=== PATIENT | female | born 1970 | race Caucasian/White ===

== ENCOUNTER 2018-09-19 08:22 | Inpatient (IN) ==
--- NOTE | 2018-09-01 11:56 | Anesthesiology Consultation ---
Date of Service September 01, 2018 Assessment & Plan (1) Encounter for pre-operative examination: Chart Review Chart Review: Acceptable Risk for Surgery and Patient seen in Pre Admission Testing Consults Requested none Teaching & Discussion Pre-Anesthesia Teaching/Discussion Notes: Instructed NPO after midnight before surgery, except medications with 15 cc of water. Medication instructions provided according to the PAT guidelines. History Surgery Operation Date: 09/19/18 10:05 Proposed Procedures p T12-L1 Decompression and Fusion - Juan Spears DO Height/Weight Height: 5 ft 6 in Weight: 82.5 kg Allergies Allergy/AdvReac Type Severity Reaction Status Date / Time No Known Allergies Allergy Verified 08/26/18 11:21 Medications Home Medications Medication Instructions Recorded Confirmed Last Taken [id number]-zbvovznardhjh-ournjoio 2 tab PO Q6H PRN 08/26/18 08/26/18 Unknown [Excedrin Extra Strength] hydrochlorothiazide 25 mg PO QPM 08/26/18 08/26/18 Unknown paroxetine HCl 20 mg PO QPM 08/26/18 08/26/18 Unknown trazodone 50 mg PO HS 08/26/18 08/26/18 Unknown Past Medical History Medical History Anxiety Chronic pain D/T BACK ISSUES Depression Hypertension Seasonal allergies Past Family History Family History Brother Family history of diabetes mellitus Son No problems noted. Father Family history of diabetes mellitus Mother Family history of diabetes mellitus Grandmother (Maternal) Family history of diabetes mellitus Sister Family history of diabetes mellitus Past Surgical History Surgical History History of section History of cholecystectomy History of hysterectomy OVARIES REMAIN; AT SAME TIME HAD BLADDER TACKING Past Anesthesia History No Hx of Anesthesia Complications and No Family Hx of Anesthesia Complications History of PONV Yes (Drank water immediately after surgery when they told her not to.) Motion Sickness Screening History of Motion Sickness: No Social History Smoking Status: Former smoker tobacco type: cigarettes Do You Dip or Chew Tobacco: No Smoking End Date: 1999 Hx Alcohol Use: Yes alcohol intake frequency: holidays/special occasions only Hx Substance Use: Yes (USES 1-2 TIME PER MONTH) substance use type: marijuana Substance Use Type Other:: SMOKES Last Used Substance Other:: 1 WEEK AGO Exercise / Class Metabolic Activity II 4-5 Yardwork/Stairs/Walk up hill (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 Able to climb FOS with railing for stability. Denies CP or SOB. ) Review of Systems Patient denies chest pain, shortness of breath, dyspnea on exertion, cough, wheezing, palpitations. +Joint Pain (Back, hands, knees) +Acid reflux (controlled with diet) Physical Exam Vital Signs BP: 109/74 P: 64 R: 16 T: 97.5 SPO2: 97% on RA ENMT Thyromental Distance: > or= 3.5 Finger Breadths (3.5) Mallampati Class: II Neck normal visual inspection and trachea midline; neck extension not limited Respiratory normal respiratory effort Auscultation: lungs clear to auscultation bilaterally Cardiovascular Rate/Rhythm: regular rate and regular rhythm Heart Sounds: no murmur Vessels: no carotid bruit Neurologic moves all extremities Psychiatric Orientation: alert and oriented x 3 Testing Electrocardiogram Date: 09/01/18 Findings: + NSR @ (63) Rightward axis. Chest X-Ray Date: 09/01/18 Findings: + NAD FINDINGS: The cardiac and mediastinal contours are normal. There is no evidence of focal pulmonary consolidation. There is no evidence of failure. No pleural effusions are visualized.[ IMPRESSION: No active disease in the chest. Laboratory Results 09/01/18 12:33 09/01/18 12:33 Blood Type AB Positive 09/01/18 12:33 Antibody Screen NEGATIVE 09/01/18 12:33 PT 10.1 Seconds (9.0-12.0) 09/01/18 12:33 INR 1.0 (0.9-1.1) 09/01/18 12:33 APTT 24.0 Seconds (21.0-31.0) 09/01/18 12:33 Urine Color Dark Yellow 09/01/18 Unknown Urine Appearance Clear (Clear) 09/01/18 Unknown Urine pH 6.0 (4.5-7.5) 09/01/18 Unknown Ur Specific [place] 1.027 (1.000-1.030) 09/01/18 Unknown Urine Protein Negative (Negative) 09/01/18 Unknown Urine Glucose (UA) Negative (Negative) 09/01/18 Unknown Urine Ketones Trace (Negative) H 09/01/18 Unknown Urine Nitrite Negative (Negative) 09/01/18 Unknown Ur Leukocyte Esterase Negative (Negative) 09/01/18 Unknown
--- NOTE | 2018-09-01 11:59 | PAT Medication Instructions ---
Medication Instructions Date of Service September 01, 2018 Home Medications atzifba-crknxtqtjkqum-gynxjoko [Excedrin Extra Strength] 2 tab PO Q6H NEEDED hydrochlorothiazide 25 mg PO QPM paroxetine HCl 20 mg PO QPM trazodone 50 mg PO HS ASK your surgeon for instructions [id number]-ffqfyrmxhmkmd-qwdzhkao [Excedrin Extra Strength] 2 tab PO Q6H NEEDED Take morning of surgery NOTHING TO EAT OR DRINK AFTER MIDNIGHT Take evening before surgery hydrochlorothiazide 25 mg PO QPM paroxetine HCl 20 mg PO QPM trazodone 50 mg PO HS Other Notes If you have any questions please call us at [phone] or [phone] or [phone] or [phone]
--- NOTE | 2018-09-01 13:14 | XRay Report ---
XR chest Pre-admission PA/Lat CLINICAL HISTORY: Preoperative chest COMPARISON STUDY: No previous studies for comparison. FINDINGS: The cardiac and mediastinal contours are normal. There is no evidence of focal pulmonary co nsolidation. There is no evidence of failure. No pleural effusions are visualized.[ IMPRESSION: No active disease in the chest. Electronically signed by: Jeromy Olvera M.D. 09/01/2018 1:12 PM
[2018-09-01 13:30] LABS: Basophils # (auto) 0.03 K/uL (0-0.2); Basophils % (auto) 0.4 %; Eosinophils # (auto) 0.21 K/uL (0-0.5); Eosinophils % (auto) 2.5 %; Hematocrit (blood only) 40.1 % (37-47); Immature Granulocytes # (auto) 0.02 K/uL (0.00-0.02); Immature Granulocytes % (auto) 0.2 %; Lymphocytes # (auto) 2.47 K/uL (1.2-3.4); Lymphocytes % (auto) 29.5 %; Mean Corpuscular Hgb Conc 34.9 g/dL (32-36); Mean Corpuscular Volume 87.9 fL (80-100); Mean Platelet Volume 8.8 fL (7.4-10.4); Monocytes # (auto) 0.39 K/uL (0.11-0.59); Monocytes % (auto) 4.7 %; Neutrophils # (auto) 5.25 K/uL (1.4-6.5); Neutrophils % (auto) 62.7 %; Platelet Count 318 K/uL (130-400); RDW Coefficient of Variation 12.3 % (11.5-14.5); RDW Standard Deviation 39.1 fL (36.4-46.3); Red Blood Count 4.56 M/uL (4.2-5.4); White Blood Count 8.37 K/uL (4.8-10.8)
[2018-09-01 13:40] LABS: BUN Creatinine Ratio 15.1 (10-20); Creatinine Clr Calc Pharmacy 96.7 ml/min; Est GFR (African American) 105.8; Est GFR (Non-African American) 91.3; Potassium 3.7 mmol/L (3.5-5.1)
[2018-09-01 13:42] LABS: Partial Thromboplastin Ratio 0.9; Prothrombin Time 10.1 Seconds (9.0-12.0)
[2018-09-01 14:08] LABS: Appearance Urine Clear (Clear); Blood Urine Negative (Negative); Color Urine Dark Yellow; Glucose Urine UA Negative (Negative); Ketones Urine Trace (Negative); Leukocyte Esterase Urine Negative (Negative); Nitrite Urine Negative (Negative); Protein Urine Negative (Negative); Specific Gravity Urine 1.027 (1.000-1.030); Urobilinogen Urine Negative (Negative)
[2018-09-01 14:58] LABS: Bilirubin Urine Negative (Negative); Ictotest Urine Negative (Negative)
[~2018-09-19 08:22] MED LIST: ACETAMINOPHEN 500 MG TAB PO SCH; CEFAZOLIN 2000MG 2,000 MG/15 ML SYR IV SCH; CeleBREX 200 MG CAP PO SCH; DEXAMETHASONE SOD INJ 4 MG/ML VIAL ONE; GABAPENTIN 300 MG x 3 PO SCH; GLYCOPYRROLATE 0.2 MG/ML VIAL ONE; HYDROmorphone INJ 2 MG/ML SYR/VIAL ONE; LIDOCAINE HCL 2% 2 ML VIAL/AMP(20MG/ML) INFIL ONE; LR 15ML/HR IV SCH; MIDAZOLAM HCL 1 MG/ML 2ML VIAL ONE; NEOSTIGMINE METHYLSULFATE 1 MG/ML 10ML VIAL ONE; ONDANSETRON INJ 2 MG/ML 2 ML VIAL ONE; PROPOFOL IV EMULSION 10 MG/ML 20 ML VIAL IV ONE; ROCURONIUM BROMIDE 10 MG/ML 5 ML VIAL ONE; ePHEDrine sulfate 50 MG/ML AMP ONE; fentaNYL citrate 100 MCG/2 ML VIAL ONE
[2018-09-19] MEDS ORDERED: SCOPOLAMINE 1.5 MG TDSY TD ONE (09:02)
[2018-09-19] MEDS ORDERED: SCOPOLAMINE 1.5 MG TDSY ONE (09:07)
--- NOTE | 2018-09-19 09:40 | History & Physical Bridge Note ---
Date of Service September 19, 2018 History & Physical Bridge Note I have examined the patient, reviewed the History & Physical and in the interval since the performance of the History & Physical I have noted the following changes of clinical significance: no changes noted
--- NOTE | 2018-09-19 09:41 | History & Physical Report ---
Date of Service September 19, 2018 Assessment & Plan (1) Neurogenic claudication due to lumbar spinal stenosis: T12-L1 decompression and fusion Present on Admission?: Yes History of Present Illness Chief Complaint: Back and bilateral leg pain Primary Care Provider: Paco Farrell MD This is a 48-year-old female that presents with back and bilateral leg pain and weakness. After failing extensive course of nonoperative care she is here for surgical intervention. Allergies Allergy/AdvReac Type Severity Reaction Status Date / Time No Known Allergies Allergy Verified 09/19/18 08:47 Home Medications Home Medications Medication Instructions Recorded Confirmed Type wjgptwk-jvlxxxlncmgjy-vhoebdfc 2 tab PO Q6H PRN 08/26/18 09/19/18 History [Excedrin Extra Strength] hydrochlorothiazide 25 mg PO QPM 08/26/18 09/19/18 History paroxetine HCl 20 mg PO QPM 08/26/18 09/19/18 History trazodone 50 mg PO HS 08/26/18 09/19/18 History Past Med/Surg History Medical History Anxiety Chronic pain D/T BACK ISSUES Depression Hypertension Seasonal allergies Surgical History History of section History of cholecystectomy History of hysterectomy OVARIES REMAIN; AT SAME TIME HAD BLADDER TACKING Social History Preferred Language: Filipino Communication Ability: Effective Beliefs That Will Affect Care: None Current Living Situation: Spouse Other Information That Helps Us Care for You: No Feels Safe at Home: Yes Safety Concerns: Feels Safe At This Time Smoking Status: Former smoker Hx Alcohol Use: Yes Hx Substance Use: Yes (USES 1-2 TIME PER MONTH) Physical Exam Vital Signs (Past 24 Hours): Last Vital Signs Temp 36.5 C 09/19/18 08:49 Pulse 56 L 09/19/18 08:49 Resp 20 09/19/18 08:49 BP 134/86 09/19/18 08:49 Pulse Ox 97 09/19/18 08:49
[2018-09-19] MEDS ORDERED: ATROPINE SULFATE 0.1 MG/ML 10ML SYR IV PRN (09:42)
[2018-09-19] MEDS ORDERED: MoRPHine SULFATE 10 MG/ML CARP/VIAL IV PRN (09:42)
[2018-09-19] MEDS ORDERED: fentaNYL citrate 100 MCG/2 ML VIAL IV PRN (09:42)
[2018-09-19] MEDS ORDERED: ONDANSETRON INJ 2 MG/ML 2 ML VIAL IV PRN ×2 (09:42→12:54)
[2018-09-19] MEDS ORDERED: ePHEDrine sulfate 50 MG/ML AMP IV PRN (09:42)
[2018-09-19] MEDS ORDERED: BUPIVACAINE/EPINEPHRINE 0.5% MPF 1:200,000 30 ML VIAL ONE (09:56)
[2018-09-19] MEDS ORDERED: BACITRACIN INJ 50,000 UNIT VIAL ONE (09:56)
[2018-09-19] MEDS ORDERED: fentaNYL citrate 100 MCG/2 ML VIAL ONE ×3 (10:30→11:44)
[2018-09-19] MEDS ORDERED: LARYING-O-JET KIT (LTA) ONE (10:37)
[2018-09-19] MEDS ORDERED: FLOSEAL HEMOSTATIC MATRIX 10ML TOP ONE ×2 (10:50→10:51)
[2018-09-19] MEDS ORDERED: KETOROLAC 30 MG/ML VIAL ONE (11:40)
--- NOTE | 2018-09-19 11:43 | Operative Report ---
Post Operative Report Pre & Post Diagnosis Operation Date: 09/19/18 09:55 Pre-Op Diagnosis: Neurogenic claudication due to lumbar spinal stenosis Post-Op Diagnosis: Neurogenic claudication due to lumbar spinal stenosis Procedure Operation Date: 09/19/18 09:55 Actual Procedures #1 lumbar decompression medial facetectomies foraminotomies T12-L1. #2 posterior spinal fusion T12-L1. #3 placement of posterior instrumentation T12- L1. #4 placement of local autograft in the posterior lateral gutters per #5 placement of infuse collagen sponge, with ostium into the posterior lateral gutters. Surgeon Juan Spears, Thread Drawer Mara Zhou Estimated Blood Loss 100 Findings Consistent with Post-Op Diagnosis Specimens None Description of Procedure Patient was met with preoperatively case discussed all questions addressed. After informed consent obtained patient was taken to the operative suite underwent intubation and placed in a prone position the Navin table on top of the Daryl frame. All bony prominences well-padded eyes inspected to ensure no external pressure placed upon. This point the thoracolumbar spine was prepped and draped in a sterile fashion. Sharp dissection with the assistance Bovie cautery was performed down to and exposing the lamina and transverse process of T12 and L1. From a caudal cephalad fashion complete laminectomy of T12 was performed including bilateral medial facetectomies and foraminotomies to address severe stenosis. Pedicle screws were then placed in T12 and L1 bilaterally with assistance of fluoroscopy and process angel locked in position. Transverse processes of T12 and L1 burred to subcortical bleeding bone. Infuse collagen sponge bone mass graft placed in the posterior lateral gutters as well as local autograft. 15 round XU drain inserted. Incision was then closed with 1 Vicryl in the fascia 2-0 Vicryl subtenons seen for Monocryl for final skin closure. Steri-Strip sterile dressings placed. Patient will continue to PACU stable disc. Please note Mara Zhou present throughout the entire procedure involved in patient positioning complex portions of the surgery and final skin closure. I attest to the content of the Intraoperative Record and any orders documented therein. Any exceptions are noted below.
--- NOTE | 2018-09-19 12:24 | Fluoroscopy Report ---
FL lumbar spine 2-3V CLINICAL HISTORY: T12-L1 DECOMPRESSION AND FUSION COMPARISON STUDY: None FLUOROSCOPY TIME: 30 seconds. NUMBER OF FLUOROSCOPIC IMAGES: 2 FINDINGS: 2 intraoperative fluoroscopic spot images reveal postsurgical changes of a spinal decompres rm and fusion at the T12-L1 level. IMPRESSION: Postsurgical changes at the T12-L1 level. Electronically signed by: Jeromy Olvera M.D. 09/19/2018 12:22 PM
--- NOTE | 2018-09-19 12:38 | Anesthesiology Progress Note ---
Date of Service September 19, 2018 Anesthesia Post Procedure Vital Signs Vital Signs: Temp Pulse Pulse Resp BP Pulse Ox 09/19/18 12:25 64 16 144/80 H 96 09/19/18 12:15 70 14 150/78 H 100 09/19/18 12:08 97.2 F L 72 13 159/81 H 99 09/19/18 08:49 97.7 F 56 L 20 134/86 97 Pain Intensity Bilateral Back: Pain Intensity: 6 Notes Mental Status: alert / awake / arousable and participated in evaluation Patient Amnestic to Procedure: Yes Nausea / Vomiting: adequately controlled Pain: adequately controlled Airway Patency, RR, SpO2: stable & adequate BP & HR: stable & adequate Hydration State: stable & adequate Anesthetic Complications: no major complications apparent and Pt Satisfied with anesthetic care
[2018-09-19] MEDS ORDERED: ESMOLOL HCL INJ 10 MG/ML 10ML VIAL IV ONE (12:49)
[2018-09-19] MEDS ORDERED: HYDROmorphone INJ 0.5 MG/0.5 ML SYR IV PRN (12:54)
[2018-09-19] MEDS ORDERED: BISACODYL 10 MG SUPP PR PRN (12:54)
[2018-09-19] MEDS ORDERED: DO NOT ADMINISTER FLU VACCINE PRN (12:54)
[2018-09-19] MEDS ORDERED: LORazepam 0.5 MG/1 ML VIAL IV PRN (12:54)
[2018-09-19] MEDS ORDERED: LORazepam 0.5 MG TAB PO PRN (12:54)
[2018-09-19] MEDS ORDERED: MAGNESIUM HYDROXIDE SUSP 30 ML UDC PO PRN (12:54)
[2018-09-19] MEDS ORDERED: METOCLOPRAMIDE HCL INJ 5 MG/ML 2 ML VIAL IV PRN (12:54)
[2018-09-19] MEDS ORDERED: PROMETHAZINE HCL 12.5 MG in SODIUM CHLORIDE 0.9% 50 ML IV PRN (12:54)
[2018-09-19] MEDS ORDERED: DO NOT ADMINISTER PNEUMOCOCCAL VACCINE PRN (12:54)
[2018-09-19] MEDS ORDERED: SOD PHOSPHATE/SOD BIPHOSPHATE ENEMA 132 ML BTL PR PRN (12:54)
[2018-09-19] MEDS ORDERED: TRAMADOL HCL 50 MG TABLET PO PRN (12:54)
[2018-09-19] MEDS ORDERED: ALUMINUM/MAGNESIUM SUSP 30 ML UDC PO PRN (12:54)
[2018-09-19] MEDS ORDERED: ACETAMINOPHEN 1,000 MG/100 ML VIAL IV PRN (12:54)
[2018-09-19] MEDS ORDERED: ONDANSETRON 4 MG TAB PO PRN (12:54)
[2018-09-19] MEDS ORDERED: ACETAMINOPHEN 500 MG TAB PO PRN (12:54)
[2018-09-19] MEDS ORDERED: FAMOTIDINE 20 MG TAB PO PRN (12:54)
[2018-09-19] MEDS: KETOROLAC TROMETHAMINE 15 MG/ML VIAL IV SCH ×2 (14:48→21:34)
[2018-09-19] MEDS: LACTATED RINGER'S 1,000 ML IV SCH ×2 (14:49→20:09)
[2018-09-19] MEDS ORDERED: CHECK SCOPOLAMINE PATCH PLACEMENT SCH (16:00)
[2018-09-19] MEDS: CEFAZOLIN 2000MG 2,000 MG/15 ML SYR IV SCH (18:32)
[2018-09-19] MEDS: OXYCODONE HCL IR 5 MG TAB (IMMEDIATE RELEASE) PO PRN (20:08)
[2018-09-19] MEDS: DOCUSATE SODIUM/SENNA 50/8.6MG TAB PO SCH (20:10)
[2018-09-19] MEDS: PARoxetine HCl 20 MG TAB PO SCH (20:11)
[2018-09-19] MEDS: hydroCHLOROthiazide 25 MG TAB PO SCH (20:12)
[2018-09-19] MEDS: TRAZODONE HCL 50 MG TAB PO SCH (21:34)
[2018-09-20] MEDS: CEFAZOLIN 2000MG 2,000 MG/15 ML SYR IV SCH (02:10)
[2018-09-20] MEDS: OXYCODONE HCL IR 5 MG TAB (IMMEDIATE RELEASE) PO PRN ×5 (02:24→22:08)
[2018-09-20] MEDS: KETOROLAC TROMETHAMINE 15 MG/ML VIAL IV SCH ×2 (02:56→08:41)
[2018-09-20] MEDS: LACTATED RINGER'S 1,000 ML IV SCH (03:01)
[2018-09-20] MEDS: POLYETHYLENE (MIRALAX) 17 GM PACK PO SCH ×4 (06:04→23:23)
[2018-09-20 06:06] LABS: Eosinophils # (auto) 0.01 K/uL (0-0.5); Eosinophils % (auto) 0.1 %; Hematocrit (blood only) 32.4 % (37-47); Hemoglobin 11.1 g/dL (12.0-16.0); Immature Granulocytes # (auto) 0.03 K/uL (0.00-0.02); Immature Granulocytes % (auto) 0.2 %; Lymphocytes # (auto) 2.35 K/uL (1.2-3.4); Lymphocytes % (auto) 18.2 %; Mean Corpuscular Hgb Conc 34.3 g/dL (32-36); Mean Corpuscular Volume 89.8 fL (80-100); Mean Platelet Volume 8.6 fL (7.4-10.4); Monocytes # (auto) 0.76 K/uL (0.11-0.59); Monocytes % (auto) 5.9 %; Neutrophils # (auto) 9.73 K/uL (1.4-6.5); Neutrophils % (auto) 75.6 %; Platelet Count 189 K/uL (130-400); RDW Coefficient of Variation 12.7 % (11.5-14.5); RDW Standard Deviation 41.1 fL (36.4-46.3); Red Blood Count 3.61 M/uL (4.2-5.4); White Blood Count 12.88 K/uL (4.8-10.8)
[2018-09-20 06:35] LABS: BUN Creatinine Ratio 16.6 (10-20); Calcium 8.1 mg/dl (8.5-10.1); Creatinine Clr Calc Pharmacy 106.3 ml/min; Est GFR (African American) 116.7; Est GFR (Non-African American) 100.7; Potassium 3.6 mmol/L (3.5-5.1)
--- NOTE | 2018-09-20 07:34 | Anesthesiology Progress Note ---
Date of Service September 20, 2018 Anesthesia Post Procedure Vital Signs Vital Signs: Temp Pulse Pulse Resp BP Pulse Ox 09/20/18 02:52 36.5 C 59 L 16 124/81 97 09/19/18 23:00 36.7 C 67 16 113/71 98 09/19/18 20:13 61 143/92 H 09/19/18 18:59 36.7 C 83 16 118/73 96 09/19/18 16:10 36.4 C L 79 19 111/68 99 09/19/18 15:02 36.6 C 73 16 96/59 L 99 09/19/18 13:59 55 L 18 136/80 98 09/19/18 13:29 56 L 16 138/72 100 09/19/18 13:00 36.4 C L 65 18 128/79 93 09/19/18 12:50 79 16 128/89 97 09/19/18 12:35 36.4 C L 66 16 144/80 H 98 09/19/18 12:25 64 16 144/80 H 96 09/19/18 12:15 70 14 150/78 H 100 09/19/18 12:08 36.2 C L 72 13 159/81 H 99 09/19/18 08:49 36.5 C 56 L 20 134/86 97 Pain Intensity Bilateral Back: Pain Intensity: 4 Notes Mental Status: alert / awake / arousable and participated in evaluation Patient Amnestic to Procedure: Yes Nausea / Vomiting: adequately controlled Pain: adequately controlled Airway Patency, RR, SpO2: stable & adequate BP & HR: stable & adequate Hydration State: stable & adequate Anesthetic Complications: no major complications apparent
--- NOTE | 2018-09-20 10:26 | Orthopedic Progress Note ---
Date of Service September 20, 2018 Assessment & Plan (1) Neurogenic claudication due to lumbar spinal stenosis: This time we will continue physical therapy monitor XU output anticipate discharge home in the next few days. Present on Admission?: Yes Subjective Patient states her back pain is controlled denies any leg symptoms. She is sitting comfortably in the chair at the bedside. Physical Exam Vital Signs (Past 24 Hours): Last Vital Signs Temp 36.4 C L 09/20/18 07:05 Pulse 58 L 09/20/18 07:05 Resp 16 09/20/18 07:05 BP 104/67 09/20/18 07:05 Pulse Ox 99 09/20/18 07:05 Physical Exam: Patient appears comfortable. She is sitting in a chair and is good strength testing.
[2018-09-20] MEDS: DOCUSATE SODIUM/SENNA 50/8.6MG TAB PO SCH (22:08)
[2018-09-20] MEDS: PARoxetine HCl 20 MG TAB PO SCH (22:08)
[2018-09-20] MEDS: TRAZODONE HCL 50 MG TAB PO SCH (22:08)
[2018-09-20] MEDS: hydroCHLOROthiazide 25 MG TAB PO SCH (22:08)
[2018-09-21] MEDS: OXYCODONE HCL IR 5 MG TAB (IMMEDIATE RELEASE) PO PRN ×3 (03:25→16:47)
[2018-09-21] MEDS: POLYETHYLENE (MIRALAX) 17 GM PACK PO SCH ×4 (05:38→23:32)
--- NOTE | 2018-09-21 14:47 | Orthopedic Progress Note ---
Date of Service September 21, 2018 Assessment & Plan (1) Neurogenic claudication due to lumbar spinal stenosis: This time we will continue physical therapy DC her drain today and discharge home tomorrow. Present on Admission?: Yes Subjective Back pain controlled leg symptoms improved. Physical Exam Physical Exam: This time she is good strength testing appears comfortable. Results & Data Vital Signs (Past 12 Hours) Vital Signs Temp Pulse Resp BP Pulse Ox 09/21/18 05:10 36.9 C 88 18 112/62 91
[2018-09-21] MEDS: hydroCHLOROthiazide 25 MG TAB PO SCH (20:26)
[2018-09-21] MEDS: TRAZODONE HCL 50 MG TAB PO SCH (20:27)
[2018-09-21] MEDS: PARoxetine HCl 20 MG TAB PO SCH (20:27)
[2018-09-21] MEDS: DOCUSATE SODIUM/SENNA 50/8.6MG TAB PO SCH (20:27)
[2018-09-22] MEDS: OXYCODONE HCL IR 5 MG TAB (IMMEDIATE RELEASE) PO PRN ×2 (00:57→10:55)
[2018-09-22] MEDS: POLYETHYLENE (MIRALAX) 17 GM PACK PO SCH (06:05)
[2018-09-22] MEDS ORDERED: KETOROLAC 30 MG/ML VIAL IV ONE (08:24)
--- NOTE | 2018-09-22 08:26 | Discharge Summary ---
Date of Service September 22, 2018 Admission HPI Per Admitting Provider This is a 48-year-old female that presents with back and bilateral leg pain and weakness. After failing extensive course of nonoperative care she is here for surgical intervention. Principal Diagnosis Thoracic spinal stenosis Discharge Data Allergies Allergy/AdvReac Type Severity Reaction Status Date / Time No Known Allergies Allergy Verified 09/19/18 08:47 Consultations 09/19/18 12:54 Consult Case Management - Discharge Planning Routine Procedures Performed Operation Date: 09/19/18 09:55 Actual Procedures p T12-L1 Decompression and Fusion(Not Applicable) - Juan Spears DO Ordered Studies 09/19/18 09:55 FL fluoroscopy <1hr Routine [place] lumbar spine 2-3V Routine Hospital Course (1) Neurogenic claudication due to lumbar spinal stenosis: Patient underwent a lumbar decompression fusion tolerated this well and stayed with orthopedic for postop bleed. Postop pain when she is up and in bleeding progressed to postop day #2. She is struggling with some right trochanteric bursitis. This is manageable. Subsequently discharged home on postop day #3. Discharge orders and instructions from the chart for further review. Total Time Total Time Spent Total Time Spent (In Minutes): Not applicable Discharge Plan Discharge Items Patient Disposition: Home - Self-Care Reason For Visit: Intervertebral Disc Disorders with Myelopathy Discharge Diagnosis: lumbar stenosis Discharge Goals: Improve function Activity: Per 'Additional Instructions' section Non-emergency contact: Primary Care Provider Call non-emergency contact if: you have any medication questions Follow-up/Referrals: Paco Farrell MD [Primary Care Provider] - Diet: Regular Addtl Provider Instructions: ACTIVITY RECOMMENDATIONS: SELF CARE INSTRUCTIONS AFTER THORACIC/LUMBAR FUSIONS 1. You may walk to your tolerance. It is good exercise for your legs and back. Expect some back and intermittent leg aches and pains. 2. You may perform "counter-top" level activities (make a sandwich, marylu with a project, etc.). 3. No bending or lifting of more than 10 pounds or back twisting of any nature (roll like a log when turning in bed). 4. You may ride in a car for 20-30 minutes at a time. No driving until after your first visit with your doctor. 5. Frequent changes of position and restricting sitting to 30 minutes at a time will help limit the amount of back spasms and stiffness you may experience. 6. You may discontinue the use of ambulatory aids (cane, crutches, etc.) once your strength and confidence allow. 7. You may water aerobics instructor the shower and let water strike your incision when you arrive home at least once daily. Do not take a tub bath, sit in a hot tub or go into a swimming pool until after your first recheck in the office. SPECIAL CARE INSTRUCTIONS: VERY IMPORTANT TO READ AND REVIEW A. Your surgical incision has been closed with a cosmetic suture under the skin that will dissolve in about 6 weeks. In 14 days, you can use a pair of clean scissors and cut the suture that is left outside of the skin at the ends of your incision. 1. The small skin tapes can be removed 7 days after surgery if they have not fallen off by that point. 2. You may keep the wound open to air as much as possible to promote healing after post-op day number 5 unless told otherwise by your doctor. 3. If you think the wound looks like it is becoming infected (redness or worsening drainage) and/or you are experiencing fever, chill or worsening back pain and muscle spasms, contact the office so that we may evaluate you as soon as possible. B. Complications are uncommon, but please contact us if you have any signs or symptoms of: 1. wound infection (fever higher than 102.5 degrees F, redness, separation of wound, drainage, or increasing pain from the incision) 2. blood clots in legs (pain, swelling, redness and warmth in legs) 3. urinary tract infection (fever higher than 102.5 degrees F, burning upon urination or increased frequency of urination) 4. nerve problems (inability to walk on your toes or heels, numbness, loss of bowel or bladder control) 5. any other symptoms that concern you C. Please call the office at if you have any concerns or questions about your operation or recovery. D. No smoking! Smoking drastically decreases the chance of a solid fusion. E. Do not take any anti-inflammatory medications (Indocin, Advil, Motrin, Aspirin, Naprosyn, etc.) as these may inhibit the chance of a solid fusion. Tylenol is okay to take for pain. MANAGING PAIN AFTER SPINAL SURGERY 1. Narcotic medication is intended for short-term use and will be provided for surgical pain. Surgical pain usually lasts for a period of 4-6 weeks. Narcotic medication includes Percocet, Vicodin, Darvocet, Tylenol #3 or Lortab. 2. Longer-term pain is more appropriately treated with non-narcotic medication such as Tylenol ES. 3. Muscle spasm is not appropriately treated with narcotics. Muscle relaxers such as Soma, Flexeril or Skelaxin can be used along with Tylenol ES. 4. Remember that we all live with some "aches and pains". This is not unusual or uncommon after an injury or as we get older. a. Back pain is expected and may include muscle spasms for 4 to 6 weeks after surgery. The pain should gradually improve. If the pain worsens for no apparent reason, please contact the office. b. Intermittent leg pain may also be experienced and should not be concerned about unless it worsens for no apparent reason. If so, please contact the office. 5. We will provide appropriate medication within the normal guidelines of their prescribed use. We will also be very cautious and aware of potential abuse and extended duration of patients' medication needs. a. Pain medications are for your comfort and to assist with sleep and rest so that the tissue can heal. They are not provided in order to return to normal activity and should not be used through the day. To do so or worsening pain at night can result from ongoing tissue damage and devel opment of tolerance to the prescribed medicine. 6. Please allow 2-3 days to process refills. Prescriptions will not be mailed but must be picked up at the office. FOLLOW UP VISIT: Keep your scheduled follow-up appointment. Any questions, please call the office at . Prescriptions: New tramadol 50 mg Tablet 50 mg PO Q4H PRN (Reason: Pain, Moderate) Qty: 30 RF: 0 oxycodone 5 mg Tablet 5 mg PO Q4H PRN (Reason: Pain, Severe) Qty: 30 RF: 0 Continued hydrochlorothiazide 25 mg Tablet 25 mg PO QPM RF: 0 trazodone 50 mg Tablet 50 mg PO HS RF: 0 paroxetine HCl 20 mg Tablet 20 mg PO QPM RF: 0 Excedrin Extra Strength 250-250-65 mg Tablet 2 tab PO Q6H PRN (Reason: Pain) RF: 0 Stand-Alone Forms: [facility] Discharge Orders: Discharge Order (Routine); Ordered 09/22/18 Ordered By: Juan Spears Admission Data Admit Date/Time: 09/19/18 13:09 Attending Provider: Juan Spears Admit Provider: Juan Spears Primary Care Provider: Paco Farrell Service: Surgical Services
== END 2018-09-22 11:19 | disposition home or self-care (01) | DRG 460 ==
LOC: ASU 08:22 → 3E 13:09